=== PATIENT | female | born 1985 | race Caucasian/White ===

== ENCOUNTER → 2016-09-23 | Outpatient (CLI) | payer BC ==
[2016-09-23 11:27] LABS: Basophils % (A) 1 %; Eosinophils # (A) 0.1 k/uL (0-0.7); Eosinophils % (A) 2 %; HCT 41.4 % (34.0-46.0); HDW 2.26; HGB 13.3 gm/dL (11.4-16.0); Luc # (Auto) 0.09; Luc % (Auto) 2; Lymphocytes # (A) 1.5 k/uL (1.0-4.8); Lymphocytes % (A) 27 %; MCH 29.4 pg (25.0-35.0); MCHC 32.3 g/dL (31.0-37.0); MCV 91.2 fL (80.0-100.0); Mean Platelet Volume 6.8; Monocytes # (A) 0.3 k/uL (0-1.0); Monocytes % (A) 5 %; Neutrophils # (A) 3.7 k/uL (1.3-7.7); Neutrophils % (A) 65 %; RBC 4.53 m/uL (3.80-5.40); WBC 5.8 k/uL (3.8-10.6); WBC (Perox) 6.08
[2016-09-23 12:13] LABS: ALT 32 U/L (9-52); AST 20 U/L (14-36); Alkaline Phosphatase 99 U/L (38-126); Anion Gap 10 mmol/L; Blood Urea Nitrogen 14 mg/dL (7-17); Calcium 9.4 mg/dL (8.4-10.2); Carbon Dioxide 29 mmol/L (22-30); Chloride 101 mmol/L (98-107); Glucose 95 mg/dL (74-99); Non-African American GFR(MDRD) >60 (>60 ml/min/1.73 sqM); Potassium 4.6 mmol/L (3.5-5.1); Sodium 140 mmol/L (137-145); Total Bilirubin 0.7 mg/dL (0.2-1.3); Total Protein 7.6 g/dL (6.3-8.2)
== END | disposition home or self-care (01) ==
LOC: LABWHC1 10:42
PROVIDERS: ATTEND Nurse Practitioner Family
DX: R10.11 Right upper quadrant pain (principal); R63.5 Abnormal weight gain; R63.1 Polydipsia; R11.0 Nausea
CPT/HCPCS: 36415; 80053; 84443; 85025

== ENCOUNTER → 2016-09-29 | Outpatient (CLI) | payer BC ==
--- NOTE | 2016-09-29 13:53 | US ---
EXAMINATION TYPE: US abdomen limited DATE OF EXAM: 09/29/2016 11:10 AM COMPARISON: 02/03/2016 CLINICAL HISTORY: 31 year-old female nausea and weight gain. Patient only has right kidney. Known gal lstones; 3 weeks ago stated had severe RUQ pain radiating to back. TECHNIQUE: Multiple sonographic images of the right upper quadrant were obtained. FINDINGS: Liver Length: 12.7 cm Gallbladder Wall: 0.1 cm CBD: 0.3 cm Right Kidney: 11.7 x 5.4 x 5.8 cm Pancreas: Within normal limits. Liver: Limited views show no focal lesion. Gallbladder: Numerous small mobile calculi fill the gallbladder lumen. No abnormal gallbladder diste ntion, wall thickening, or pericholecystic fluid. Evidence for sonographic Grayson's sign: no CBD: Within normal limits. Right Kidney: no hydronephrosis. IMPRESSION: Cholelithiasis without evidence for acute cholecystitis or biliary ductal dilatation.
== END | disposition home or self-care (01) ==
LOC: RADUSWWP 10:37
PROVIDERS: ATTEND Family Medicine
DX: K80.20 Calculus of gallbladder without cholecystitis without obstruction (principal)
CPT/HCPCS: 76705; 81001; 81025

== ENCOUNTER → 2016-09-29 | Outpatient (CLI) | payer BC ==
[2016-09-29 11:56] LABS: Appearance,Urine Clear (Clear); Bacteria,Urine Rare /hpf; Bilirubin,Urine Negative (Negative); Glucose,Urine (UA) Negative (Negative); Ketones,Urine Negative (Negative); Leukocyte Esterase,Urine Moderate (Negative); Nitrite,Urine Negative (Negative); Particle Count 2748; Protein,Urine Negative (Negative); RBC,Urine 1 /hpf (0-5); Specific Gravity,Urine 1.013 (1.001-1.035); Squamous Epithelial Cell,Urine 7 /hpf (0-4); UA Billing (MACRO vs. MICRO) MICRO; Urobilinogen,Urine <2.0 mg/dL (<2.0); WBC,Urine 2 /hpf (0-5)
== END | disposition home or self-care (01) ==
LOC: LABWHC1 11:19
PROVIDERS: ATTEND Nurse Practitioner Family
DX: R11.0 Nausea (principal); R63.5 Abnormal weight gain
CPT/HCPCS: 81001; 81025

== ENCOUNTER 2016-10-07 15:22 | Emergency (ER) | payer BC ==
[2016-10-07] MEDS ORDERED: SODIUM CHLORIDE 0.9% 1,000 ML IV STA (15:39)
[2016-10-07] MEDS ORDERED: HYDROmorphone 1 MG/ML 1 ML SYRINGE IVP STA (15:57)
[2016-10-07] MEDS ORDERED: ONDANSETRON 4 MG/2 ML VIAL IVP STA (15:57)
[2016-10-07] MEDS ORDERED: ACETAMINOPHEN IV (For NPO) 1,000 MG in EMPTY BAG 1 BAG IVPB STA (16:23)
[2016-10-07 16:27] LABS: CH 30.2; CHCM 33.5; HCT 41.4 % (34.0-46.0); HDW 2.28; HGB 13.6 gm/dL (11.4-16.0); MCH 29.7 pg (25.0-35.0); MCHC 32.8 g/dL (31.0-37.0); MCV 90.5 fL (80.0-100.0); MPO Flag Slight; RBC 4.58 m/uL (3.80-5.40); RDW 12.8 % (11.5-15.5); WBC 7.8 k/uL (3.8-10.6); WBC (Perox) 44.28
--- NOTE | 2016-10-07 16:33 | ED ---
Abdominal Pain HPI - General Chief Complaint: Abdominal Pain Stated Complaint: Pain in Right Side Time Seen by Provider: 10/07/16 15:39 Source: patient, RN notes reviewed Mode of arrival: ambulatory Limitations: no limitations - History of Present Illness Initial Comments: 31-year-old female presents emergency department tingling right quadrant abdominal pain. Patient states that she saw Dr. Black for cholelithiasis. Patient states she originally was supposed to have surgery today though she moved it back. Patient states that she ate this morning around 1:30 she started having increasing pain. Patient's had some nausea. It denies any diarrhea, constipation. Denies fever, chills. - Related Data Home Medications Medication Instructions Recorded Confirmed Albuterol Inhaler [Ventolin Hfa 1 - 2 puff INHALATION RT-Q6H PRN 10/07/16 Inhaler] Montelukast Sodium [Singulair] 10 mg PO DAILY 10/07/16 10/07/16 Previous Rx's Medication Instructions Recorded Hydrocodone/Acetaminophen [[place] 1 tab PO Q6HR PRN #20 tab 10/07/16 5-325] Ondansetron Odt [Zofran Odt] 4 mg PO Q8HR PRN #10 tab 10/07/16 Allergies Allergy/AdvReac Type Severity Reaction Status Date / Time codeine Allergy Swelling Verified 10/07/16 15:49 Review of Systems ROS Statement: Those systems with pertinent positive or pertinent negative responses have been documented in the HPI. ROS Other: All systems not noted in ROS Statement are negative. Past Medical History Past Medical History: No Reported History Additional Past Medical History / Comment(s): PT STATES SHE HAS ONLY ONE KIDNEY , PT ALSO STATES SHE HAS A POLYP ON HER LEFT LUNG. History of Any Multi-Drug Resistant Organisms: None Reported Past Surgical History: No Surgical Hx Reported Additional Past Surgical History / Comment(s): 1 KIDNEY Past Anesthesia/Blood Transfusion Reactions: No Reported Reaction Past Psychological History: No Psychological Hx Reported Smoking Status: Never smoker Past Alcohol Use History: None Reported Past Drug Use History: None Reported - Past Family History Father Family Medical History: No Reported History General Exam Limitations: no limitations General appearance: alert, in no apparent distress Head exam: Present: atraumatic, normocephalic, normal inspection Respiratory exam: Present: normal lung sounds bilaterally. Absent: respiratory distress, wheezes, rales, rhonchi, stridor Cardiovascular Exam: Present: regular rate, normal rhythm, normal heart sounds. Absent: systolic murmur, diastolic murmur, rubs, gallop, clicks GI/Abdominal exam: Present: soft, tenderness (Mild right upper quadrant tenderness), normal bowel sounds. Absent: distended, guarding, rebound, rigid Back exam: Absent: CVA tenderness (R), CVA tenderness (L) Skin exam: Present: warm, dry, intact, normal color. Absent: rash Course Vital Signs 10/07/16 10/07/16 15:29 17:13 Temperature 98.2 F 97.7 F Pulse Rate 82 78 Respiratory 20 18 Rate Blood Pressure 132/80 118/82 O2 Sat by Pulse 98 100 Oximetry Medical Decision Making - Medical Decision Making 31-year-old female presented for right upper quadrant abdominal pain. Patient has known cholelithiasis. Dr. Black was emergency Department at the time of her arriving. She did state of lab work was within normal that the patient may be discharged. Patient is scheduled for for surgery. Return parameters were discussed. - Lab Data Result diagrams: 10/07/16 16:07 10/07/16 16:07 Lab Results 10/07/16 10/07/16 10/07/16 Range/Units 16:07 16:07 16:07 WBC 7.8 (3.8-10.6) k/uL RBC 4.58 (3.80-5.40) m/uL Hgb 13.6 (11.4-16.0) gm/dL Hct 41.4 (34.0-46.0) % MCV 90.5 (80.0-100.0) fL MCH 29.7 (25.0-35.0) pg MCHC 32.8 (31.0-37.0) g/dL RDW 12.8 (11.5-15.5) % Plt Count 254 (150-450) k/uL Neutrophils % (Manual) 69.0 % Lymphocytes % (Manual) 22.0 % Monocytes % (Manual) 5.0 % Eosinophils % (Manual) 4.0 % Neutrophils # (Manual) 5.4 (1.3-7.7) k/uL Lymphocytes # (Manual) 1.7 (1.0-4.8) k/uL Monocytes # (Manual) 0.4 (0-1.0) k/uL Eosinophils # (Manual) 0.3 (0-0.7) k/uL Nucleated RBCs 0 (0-0) /100 WBC Polychromasia Present Sodium 143 (137-145) mmol/L Potassium 4.3 (3.5-5.1) mmol/L Chloride 103 (98-107) mmol/L Carbon Dioxide 28 (22-30) mmol/L Anion Gap 12 mmol/L BUN 11 (7-17) mg/dL Creatinine 0.75 (0.52-1.04) mg/dL Est GFR (MDRD) Af Amer >60 (>60 ml/min/1.73 sqM) Est GFR (MDRD) Non-Af >60 (>60 ml/min/1.73 sqM) Glucose 91 (74-99) mg/dL Calcium 9.9 (8.4-10.2) mg/dL Total Bilirubin 0.5 (0.2-1.3) mg/dL AST 25 (14-36) U/L ALT 42 (9-52) U/L Alkaline Phosphatase 98 (38-126) U/L Total Protein 8.0 (6.3-8.2) g/dL Albumin 4.5 (3.5-5.0) g/dL Amylase 56 (30-110) U/L Lipase 78 (23-300) U/L Urine Color Urine Appearance (Clear) Urine pH (5.0-8.0) Ur Specific [place] (1.001-1.035) Urine Protein (Negative) Urine Glucose (UA) (Negative) Urine Ketones (Negative) Urine Blood (Negative) Urine Nitrate (Negative) Urine Bilirubin (Negative) Urine Urobilinogen (<2.0) mg/dL Ur Leukocyte Esterase (Negative) Urine RBC (0-5) /hpf Urine WBC (0-5) /hpf Ur Squamous Epith Cells (0-4) /hpf Amorphous Sediment (None) /hpf Urine Bacteria (None) /hpf Urine Mucus (None) /hpf Urine HCG, Qual Not Detected (Not Detectd) 10/07/16 Range/Units 16:07 WBC (3.8-10.6) k/uL RBC (3.80-5.40) m/uL Hgb (11.4-16.0) gm/dL Hct (34.0-46.0) % MCV (80.0-100.0) fL MCH (25.0-35.0) pg MCHC (31.0-37.0) g/dL RDW (11.5-15.5) % Plt Count (150-450) k/uL Neutrophils % (Manual) % Lymphocytes % (Manual) % Monocytes % (Manual) % Eosinophils % (Manual) % Neutrophils # (Manual) (1.3-7.7) k/uL Lymphocytes # (Manual) (1.0-4.8) k/uL Monocytes # (Manual) (0-1.0) k/uL Eosinophils # (Manual) (0-0.7) k/uL Nucleated RBCs (0-0) /100 WBC Polychromasia Sodium (137-145) mmol/L Potassium (3.5-5.1) mmol/L Chloride (98-107) mmol/L Carbon Dioxide (22-30) mmol/L Anion Gap mmol/L BUN (7-17) mg/dL Creatinine (0.52-1.04) mg/dL Est GFR (MDRD) Af Amer (>60 ml/min/1.73 sqM) Est GFR (MDRD) Non-Af (>60 ml/min/1.73 sqM) Glucose (74-99) mg/dL Calcium (8.4-10.2) mg/dL Total Bilirubin (0.2-1.3) mg/dL AST (14-36) U/L ALT (9-52) U/L Alkaline Phosphatase (38-126) U/L Total Protein (6.3-8.2) g/dL Albumin (3.5-5.0) g/dL Amylase (30-110) U/L Lipase (23-300) U/L Urine Color Light Yellow Urine Appearance Cloudy H (Clear) Urine pH 5.5 (5.0-8.0) Ur Specific [place] 1.009 (1.001-1.035) Urine Protein Negative (Negative) Urine Glucose (UA) Negative (Negative) Urine Ketones Negative (Negative) Urine Blood Negative (Negative) Urine Nitrate Negative (Negative) Urine Bilirubin Negative (Negative) Urine Urobilinogen <2.0 (<2.0) mg/dL Ur Leukocyte Esterase Large H (Negative) Urine RBC 4 (0-5) /hpf Urine WBC 11 H (0-5) /hpf Ur Squamous Epith Cells 10 H (0-4) /hpf Amorphous Sediment Rare H (None) /hpf Urine Bacteria Rare H (None) /hpf Urine Mucus Rare H (None) /hpf Urine HCG, Qual (Not Detectd) Disposition Clinical Impression: Cholelithiasis, Biliary colic Disposition: HOME SELF-CARE Condition: Stable Instructions: Abdominal Pain (ED) Additional Instructions: Please return to the Emergency Department if symptoms worsen or any other concerns. Prescriptions: Hydrocodone/Acetaminophen [[place] 5-325] 1 tab PO Q6HR PRN #20 tab PRN Reason: Pain Ondansetron Odt [Zofran Odt] 4 mg PO Q8HR PRN #10 tab PRN Reason: Nausea Referrals: Armond Martinez MD [Primary Care Provider] - 1-2 days Eula Black MD [STAFF PHYSICIAN] - 1-2 days Time of Disposition: 17:33
[2016-10-07 16:39] LABS: Add Differential Manual Differential
[2016-10-07 16:40] LABS: ALT 42 U/L (9-52); AST 25 U/L (14-36); Alkaline Phosphatase 98 U/L (38-126); Amylase 56 U/L (30-110); Anion Gap 12 mmol/L; Blood Urea Nitrogen 11 mg/dL (7-17); Calcium 9.9 mg/dL (8.4-10.2); Carbon Dioxide 28 mmol/L (22-30); Chloride 103 mmol/L (98-107); Glucose 91 mg/dL (74-99); Non-African American GFR(MDRD) >60 (>60 ml/min/1.73 sqM); Nucleated Red Blood Cells 0 /100 WBC (0-0); Polychromasia Present; Potassium 4.3 mmol/L (3.5-5.1); Sodium 143 mmol/L (137-145); Total Bilirubin 0.5 mg/dL (0.2-1.3); Total Cells Counted 100
[2016-10-07 16:52] LABS: Amorphous Sediment,Urine Rare /hpf; Appearance,Urine Cloudy (Clear); Bacteria,Urine Rare /hpf; Bilirubin,Urine Negative (Negative); Glucose,Urine (UA) Negative (Negative); Ketones,Urine Negative (Negative); Leukocyte Esterase,Urine Large (Negative); Mucus,Urine Rare /hpf; Nitrite,Urine Negative (Negative); PH, Urine 5.5 (5.0-8.0); Particle Count 8491; Protein,Urine Negative (Negative); RBC,Urine 4 /hpf (0-5); Specific Gravity,Urine 1.009 (1.001-1.035); Squamous Epithelial Cell,Urine 10 /hpf (0-4); UA Billing (MACRO vs. MICRO) MICRO; Urobilinogen,Urine <2.0 mg/dL (<2.0); WBC,Urine 11 /hpf (0-5)
[2016-10-07 17:14] VITALS: BP 118/82; PULSE 78; RESP 18; TEMP 97.7
== END 2016-10-07 17:47 | disposition home or self-care (01) ==
LOC: EC 15:22
DX: K80.70 Calculus of gallbladder and bile duct without cholecystitis without obstruction (principal); Z79.899 Other long term (current) drug therapy; Z88.5 Allergy status to narcotic agent
CPT/HCPCS: 36415; 80053; 82150; 83690; 85025; 81001; 81025; 96365; 96375; 96361; 99284; J2405; J0131

== ENCOUNTER → 2017-07-03 | Outpatient (CLI) | payer BC ==
--- NOTE | 2017-07-03 15:40 | XR ---
EXAMINATION TYPE: XR chest 2V DATE OF EXAM: 07/03/2017 COMPARISON: NONE HISTORY: Chest pain TECHNIQUE: Frontal and lateral views of the chest are obtained. FINDINGS: There is no focal air space opacity. No evidence for pneumothorax. No pleural effusion. The cardiac silhouette size is within normal limits. The osseous structures are grossly intact. IMPRESSION: 1. No acute cardiopulmonary process.
== END ==
LOC: RADXRMAIN 15:21
PROVIDERS: ATTEND Family Medicine
DX: R06.02 Shortness of breath (principal); R05 Cough
CPT/HCPCS: 71020

== ENCOUNTER 2017-07-06 12:53 | Emergency (ER) | payer BC ==
--- NOTE | 2017-07-06 13:33 | ED ---
General Adult HPI - General Chief complaint: Shortness of Breath Stated complaint: Asthma/Breathing Problems Time Seen by Provider: 07/06/17 13:00 Source: patient, RN notes reviewed Mode of arrival: ambulatory Limitations: no limitations - History of Present Illness Initial comments: This is a 31-year-old female presents emergency Department complaining that she has having an asthma attack. Patient states she started Dr. on Monday and was given steroids and continued to breathing treatments. Patient states she has had no fever or chills per patient denies any chest pain or palpitations. Patient states breathing treatments don't seem to make it any better or worse. Patient denies any calf pain or leg swelling. She denies any abdominal pain. Patient does state there is a little posterior thorax pain on the right. She states is worse with deep breathing. - Related Data Home Medications Medication Instructions Recorded Confirmed Albuterol Inhaler [Ventolin Hfa 1 - 2 puff INHALATION RT-Q6H PRN 10/07/16 Inhaler] Albuterol Nebulized [Ventolin 2.5 mg INHALATION RT-Q6H PRN 07/06/17 07/06/17 Nebulized] Fexofenadine HCl [Noreen Allergy] 180 mg PO DAILY 07/06/17 07/06/17 Norgestimate-Ethinyl Estradiol 1 tab PO DAILY 07/06/17 07/06/17 [Ortho Tri-Cyclen 28 Tablet] predniSONE See Taper PO DAILY 07/06/17 07/06/17 Allergies Allergy/AdvReac Type Severity Reaction Status Date / Time codeine Allergy Swelling Verified 07/06/17 13:47 Review of Systems ROS Statement: Those systems with pertinent positive or pertinent negative responses have been documented in the HPI. ROS Other: All systems not noted in ROS Statement are negative. Past Medical History Past Medical History: Asthma Additional Past Medical History / Comment(s): PT STATES SHE HAS ONLY ONE KIDNEY , PT ALSO STATES SHE HAS A POLYP ON HER LEFT LUNG. History of Any Multi-Drug Resistant Organisms: None Reported Past Surgical History: No Surgical Hx Reported Additional Past Surgical History / Comment(s): 1 KIDNEY Past Anesthesia/Blood Transfusion Reactions: No Reported Reaction Past Psychological History: No Psychological Hx Reported Smoking Status: Never smoker Past Alcohol Use History: None Reported Past Drug Use History: None Reported - Past Family History Father Family Medical History: No Reported History General Exam - General Exam Comments Initial Comments: GENERAL: Patient is well-developed and well-nourished. Patient is nontoxic and well- hydrated and is in no acute distress. ENT: Neck is soft and supple. No significant lymphadenopathy is noted. Oropharynx is clear. Moist mucous membranes. Neck has full range of motion without eliciting any pain. EYES: The sclera were anicteric and conjunctiva were pink and moist. Extraocular movements were intact and pupils were equal round and reactive to light. Eyelids were unremarkable. PULMONARY: Unlabored respirations. Good breath sounds bilaterally. No audible rales rhonchi or wheezing was noted. Patient makes almost no effort to take a deep breath. CARDIOVASCULAR: There is a regular rate and rhythm without any murmurs gallops or rubs. ABDOMEN: Soft and nontender with normal bowel sounds. No palpable organomegaly was noted. There is no palpable pulsatile mass. SKIN: Skin is clear with no lesions or rashes and otherwise unremarkable. NEUROLOGIC: Patient is alert and oriented x3. Cranial nerves II through XII are grossly intact. Motor and sensory are also intact. Normal speech, volume and content. Symmetrical smile. MUSCULOSKELETAL: Normal extremities with adequate strength and full range of motion. No lower extremity swelling or edema. No calf tenderness. LYMPHATICS: No significant lymphadenopathy is noted PSYCHIATRIC: Normal psychiatric evaluation. Normal interpersonal interactions appears functionally intact in deals appropriately with others. No signs of depression. No signs of anxiety. Limitations: no limitations Course Vital Signs 07/06/17 07/06/17 07/06/17 13:00 14:00 14:40 Temperature 99.0 F 98.2 F Pulse Rate 98 98 87 Respiratory 20 20 16 Rate Blood Pressure 131/87 129/83 136/83 O2 Sat by Pulse 100 98 99 Oximetry Medical Decision Making - Medical Decision Making Chest x-ray shows no acute abnormality. Patient was never wheezing and never in any respiratory distress whatsoever. Patient states she was on her period. - Lab Data Lab Results 07/06/17 Range/Units 13:50 Urine Color Yellow Urine Appearance Clear (Clear) Urine pH 5.0 (5.0-8.0) Ur Specific [place] 1.011 (1.001-1.035) Urine Protein Negative (Negative) Urine Glucose (UA) Negative (Negative) Urine Ketones Negative (Negative) Urine Blood Moderate H (Negative) Urine Nitrite Negative (Negative) Urine Bilirubin Negative (Negative) Urine Urobilinogen <2.0 (<2.0) mg/dL Ur Leukocyte Esterase Large H (Negative) Urine RBC 4 (0-5) /hpf Urine WBC 5 (0-5) /hpf Ur Squamous Epith Cells 3 (0-4) /hpf Urine Bacteria Occasional H (None) /hpf Urine Mucus Rare H (None) /hpf Disposition Clinical Impression: History of asthma Disposition: HOME SELF-CARE Condition: Good Instructions: Asthma (ED) Referrals: Armond Martinez MD [Primary Care Provider] - 1-2 days Time of Disposition: 14:58
--- NOTE | 2017-07-06 13:51 | XR ---
EXAMINATION TYPE: XR chest 2V DATE OF EXAM: 07/06/2017 COMPARISON: Chest x-ray from 3 days ago HISTORY: History of asthma with dyspnea for 4 days. TECHNIQUE: Frontal and lateral views of the chest are obtained. FINDINGS: There is no focal air space opacity, pleural effusion, or pneumothorax seen. The cardiac silhouette size is within normal limits. The osseous structures are intact. Cholecystectomy clips a re redemonstrated. IMPRESSION: No acute pulmonary process. No significant change from prior.
[2017-07-06 14:02] VITALS: TEMP 98.2
[2017-07-06 14:19] LABS: Appearance,Urine Clear (Clear); Bacteria,Urine Occasional /hpf; Bilirubin,Urine Negative (Negative); Glucose,Urine (UA) Negative (Negative); Ketones,Urine Negative (Negative); Leukocyte Esterase,Urine Large (Negative); Mucus,Urine Rare /hpf; Nitrite,Urine Negative (Negative); Particle Count 4625; Protein,Urine Negative (Negative); RBC,Urine 4 /hpf (0-5); Specific Gravity,Urine 1.011 (1.001-1.035); Squamous Epithelial Cell,Urine 3 /hpf (0-4); UA Billing (MACRO vs. MICRO) MICRO; Urobilinogen,Urine <2.0 mg/dL (<2.0); WBC,Urine 5 /hpf (0-5)
[2017-07-06 14:40] VITALS: BP 136/83; PULSE 87; RESP 16
== END 2017-07-06 15:10 | disposition home or self-care (01) ==
LOC: EC 12:53
DX: J45.909 Unspecified asthma, uncomplicated (principal); Z79.3 Long term (current) use of hormonal contraceptives; Z79.51 Long term (current) use of inhaled steroids; Z79.899 Other long term (current) drug therapy; Z88.5 Allergy status to narcotic agent
CPT/HCPCS: 71020; 81001; 87086; 99285

== ENCOUNTER → 2017-07-13 | Outpatient (CLI) | payer BC | END | disposition home or self-care (01) | LOC: LABWHC1 12:45 | PROVIDERS: ATTEND Nurse Practitioner Family | DX: R06.02 Shortness of breath (principal); R07.9 Chest pain, unspecified; Z30.41 Encounter for surveillance of contraceptive pills | CPT/HCPCS: 36415; 85379 ==

== ENCOUNTER 2017-07-14 18:14 | Emergency (ER) | payer BC ==
[2017-07-14 18:21] VITALS: RESP 18
[2017-07-14] MEDS ORDERED: methylPREDNISolone SOD SUCCI 125 MG/2 ML VIAL IV STA (18:31)
[2017-07-14] MEDS ORDERED: diphenhydrAMINE 50 MG/ML 1 ML VIAL IVP STA (18:31)
[2017-07-14] MEDS ORDERED: FAMOTIDINE 20 MG/2 ML VIAL IV STA (18:31)
--- NOTE | 2017-07-14 18:36 | ED ---
General Adult HPI - General Chief complaint: Allergic Reaction Stated complaint: Diff Breathing Time Seen by Provider: 07/14/17 18:24 Source: patient, RN notes reviewed Mode of arrival: ambulatory Limitations: no limitations - History of Present Illness Initial comments: 31 yo female presents to the ER with cc of ALLERGIC reaction. Patient had a CT with contrast earlier today. She started to notice a rash and hives and some difficulty breathing she took Benadryl which did help but she still is not feeling 100% better she thought that she should be evaluated. Patient states that she had this time has had improvement to her shortness of breath but she still has the hives mostly to the chest and face. She states that she has never had a reaction to contrast before she denies any known ALLERGY to shellfish but states that she doesn't eat them either. She was concerned due to the rash and the difficulty breathing so she thought that she should be seen. Patient denies any recent fever, chills, chest pain, back pain, abdominal pain, nausea vomiting, numbness or tingling, dysuria or hematuria, constipation or diarrhea, headaches or visual changes, or any other current symptoms. - Related Data Home Medications Medication Instructions Recorded Confirmed Albuterol Inhaler [Ventolin Hfa 1 - 2 puff INHALATION RT-Q6H PRN 10/07/16 Inhaler] Fexofenadine HCl [Noreen Allergy] 180 mg PO DAILY 07/06/17 07/14/17 Norgestimate-Ethinyl Estradiol 1 tab PO DAILY 07/06/17 07/14/17 [Ortho Tri-Cyclen 28 Tablet] L.acidoph,Paracasei, B.lactis 1 cap PO DAILY 07/14/17 07/14/17 [Probiotic] Previous Rx's Medication Instructions Recorded Famotidine [Pepcid] 20 mg PO BID #10 tablet 07/14/17 diphenhydrAMINE [Benadryl] 50 mg PO HS PRN #5 capsule 07/14/17 predniSONE 50 mg PO DAILY #5 tab 07/14/17 Allergies Allergy/AdvReac Type Severity Reaction Status Date / Time codeine Allergy Swelling Verified 07/14/17 18:57 Review of Systems ROS Statement: Those systems with pertinent positive or pertinent negative responses have been documented in the HPI. ROS Other: All systems not noted in ROS Statement are negative. Past Medical History Past Medical History: Asthma Additional Past Medical History / Comment(s): PT STATES SHE HAS ONLY ONE KIDNEY , PT ALSO STATES SHE HAS A POLYP ON HER LEFT LUNG. History of Any Multi-Drug Resistant Organisms: None Reported Past Surgical History: Cholecystectomy Additional Past Surgical History / Comment(s): 1 KIDNEY Past Anesthesia/Blood Transfusion Reactions: No Reported Reaction Past Psychological History: No Psychological Hx Reported Smoking Status: Never smoker Past Alcohol Use History: None Reported, Rare Past Drug Use History: None Reported - Past Family History Father Family Medical History: No Reported History General Exam Limitations: no limitations General appearance: alert, in no apparent distress Eye exam: Present: normal appearance, PERRL, EOMI. Absent: scleral icterus, conjunctival injection, periorbital swelling ENT exam: Present: normal exam, mucous membranes moist Neck exam: Present: normal inspection. Absent: tenderness, meningismus, lymphadenopathy Respiratory exam: Present: normal lung sounds bilaterally. Absent: respiratory distress, wheezes, rales, rhonchi, stridor Cardiovascular Exam: Present: regular rate, normal rhythm, normal heart sounds. Absent: systolic murmur, diastolic murmur, rubs, gallop, clicks Extremities exam: Present: normal inspection, full ROM, normal capillary refill. Absent: tenderness, pedal edema, joint swelling, calf tenderness Neurological exam: Present: alert, oriented X3, CN II-XII intact Skin exam: Present: warm, dry, intact, rash (Urticaria) Course Vital Signs 07/14/17 18:17 Temperature 98.8 F Pulse Rate 94 Respiratory 18 Rate Blood Pressure 156/85 O2 Sat by Pulse 100 Oximetry Medical Decision Making - Medical Decision Making 31-year-old female presents to the emergency chief complaint of urticarial type rash after receiving contrast for the CT. patient has received prednisone Benadryl and Pepcid. Patient's imaging has improved and she has had no difficulty in breathing. At this time we will start patient on medications for home. We did discuss precautions with any further CT scans. We did discuss return parameters and follow-up. Patient stated he understood all questions were answered. He'll be discharged. Disposition Clinical Impression: Allergic reaction, Urticaria Disposition: HOME SELF-CARE Condition: Stable Instructions: Anaphylaxis (ED), Urticaria (ED) Additional Instructions: Please use medication as discussed. Please follow up with family doctor if symptoms have not improved over the next two days. Please return to the emergency room if your symptoms increase or worsen or for any other concerns. Prescriptions: diphenhydrAMINE [Benadryl] 50 mg PO HS PRN #5 capsule PRN Reason: Itching Famotidine [Pepcid] 20 mg PO BID #10 tablet predniSONE 50 mg PO DAILY #5 tab Referrals: Armond Martinez MD [Primary Care Provider] - 1-2 days Time of Disposition: 19:45
[2017-07-14 20:01] VITALS: BP 141/92; PULSE 90; TEMP 98
== END 2017-07-14 19:59 | disposition home or self-care (01) ==
LOC: EC 18:14
DX: L50.0 Allergic urticaria (principal); T50.8X5A Adverse effect of diagnostic agents, initial encounter; Z79.3 Long term (current) use of hormonal contraceptives; Z79.899 Other long term (current) drug therapy; Z88.5 Allergy status to narcotic agent
CPT/HCPCS: 99284; 96374; 96375 ×2; J1200; J2930; 36415; 71275; 82565; 84520

== ENCOUNTER → 2017-07-14 | Outpatient (CLI) | payer BC ==
[2017-07-14 10:22] LABS: Blood Urea Nitrogen 16 mg/dL (7-17); Non-African American GFR(MDRD) >60 (>60 ml/min/1.73 sqM)
--- NOTE | 2017-07-14 11:11 | CT ---
EXAMINATION TYPE: CT angio chest DATE OF EXAM: 07/14/2017 COMPARISON: NONE HISTORY: Elevated d-dimer CT DLP: 167.60 mGycm. Automated Exposure Control for Dose Reduction was Utilized. CONTRAST: CTA scan of the thorax is performed with IV Contrast, patient injected with 100 ml mL of Omnipaque 35 0, pulmonary embolism protocol. MIP Images are created on CT scanner and reviewed. FINDINGS: LUNGS: The lungs are grossly clear, there is no concerning parenchymal mass or nodule identified. 3. 5 x 3.6 cm right middle lobe bulla is present. Minimal subsegmental dependent bibasilar atelectasis. There is no pleural effusion or pneumothorax seen. The tracheobronchial tree is patent. MEDIASTINUM: There is satisfactory enhancement of the pulmonary artery and its branches, there is no CT evidence for pulmonary embolism. Ascending thoracic aorta is within normal limits of There are no greater than 1 cm hilar or mediastinal lymph nodes. No cardiomegaly or pericardial effusion is see n. OTHER: No additional significant abnormality is seen. IMPRESSION: 1. No evidence of acute pulmonary embolus. Finding was communicated to Arabella at the ordering physician 's office on 07/14/2017 at 11:08 AM. 2. Right middle lobe pulmonary blebs, incidentally noted.
== END | disposition home or self-care (01) ==
LOC: RADCTMAIN 09:43
PROVIDERS: ATTEND Nurse Practitioner Family
DX: J43.9 Emphysema, unspecified (principal); R79.89 Other specified abnormal findings of blood chemistry; Z30.41 Encounter for surveillance of contraceptive pills
CPT/HCPCS: 82565; 84520; 71275; 36415; Q9967

== ENCOUNTER → 2017-07-25 | Outpatient (CLI) | payer BC ==
--- NOTE | 2017-07-25 10:42 | XR ---
EXAMINATION TYPE: XR abdomen 1V DATE OF EXAM: 07/25/2017 COMPARISON: 12/20/2014 HISTORY: Pain TECHNIQUE: Single supine KUB image of the abdomen is obtained FINDINGS: Small bowel demonstrates no evidence for dilatation or air fluid levels. Gas and fecal material is seen in non-distended colon. No convincing evidence for pneumoperitoneum. No unusual calcifications. The lung bases are clear. The osseous structures are intact. IMPRESSION: 1. Overall nonobstructive bowel gas pattern.
== END | disposition home or self-care (01) ==
LOC: RADXRMAIN 09:38
PROVIDERS: ATTEND Family Medicine
DX: K59.00 Constipation, unspecified (principal)
CPT/HCPCS: 74000

== ENCOUNTER 2017-09-15 07:13 | Day surgery (SDC) | payer BC ==
[2017-09-13 11:03] VITALS: BMI 27.3
[~2017-09-15 07:13] MED LIST: LACTATED RINGERS 1,000 ML IV SCH; ONDANSETRON 4 MG/2 ML VIAL IVP PRN
[2017-09-15 07:44] VITALS: RESP 16; TEMP 97.9
[2017-09-15] MEDS ORDERED: LIDOCAINE 1% 20 ML VIAL (10MG/ML) FOR IV START INTRADERMA ONE (07:47)
[2017-09-15] MEDS ORDERED: NA PHOS,M-B/NA PHOS,DI-BA 133 ML ENEMA RECTAL ONE ×2 (07:58→08:19)
[2017-09-15] MEDS ORDERED: PROPOFOL 10 MG/ML 20 ML VIAL IV ONE (08:47)
--- NOTE | 2017-09-15 09:10 | P.PCN ---
Date of Procedure: 09/15/17 Procedure(s) Performed: Brief history: Patient is a pleasant 32-year-old white female,scheduled for an elective upper endoscopy as well as colonoscopy as a part of evaluation of abdominal pain, abdominal bloating and alternating diarrhea and constipation of several years duration. Symptoms lately have been progressively getting worse. Procedure performed: Esophagogastroduodenoscopy with biopsy Colonoscopy with biopsy Preoperative diagnosis: abdominal pain, abdominal bloating and alternating diarrhea and constipation of several years duration Anesthesia: MAC Procedure: After informed consent was obtained from the patient was brought into the endoscopy unit and IV sedation was administered by anesthesia under continuous monitoring. Initially upper endoscopy was done. The Olympus GF 160 video endoscope was inserted inserted into the mouth and esophagus intubated without any difficulty and was gradually advanced into the stomach and duodenum and carefully examined. The bulb and second part of the duodenum appeared normal. biopsies were done from the duodenum to rule out celiac disease.The scope was then withdrawn into the stomach adequately insufflated with air and upon careful examination the antrum had mild gastritis and biopsies were done from this area. The body, cardia and fundus appeared normal. The scope was then withdrawn into the esophagus. small sliding Hiatal hernia noted. The GE junction was located at 38 cm to the incisors. It appeared regular with no erythema erosions or ulcerations. Rest of the esophagus appeared normal. Patient tolerated the procedure well. At this time the patient continued to remain sedation. Initial digital rectal examination was normal. Olympus CF 160 video colonoscope was then inserted into the rectum and gradually advanced to the cecum without any difficulty. Careful examination was performed as the scope was gradually being withdrawn. terminal ileum was intubated and 20 cm visualized and appeared normal.The prep was excellent. The cecum, ascending colon, transverse colon, descending colon, sigmoid colon and rectum appeared normal. random biopsies were done from ascending and ascending colon to rule out microscopic/collagenous colitis. Retroflexion was performed in the rectum and no lesions were noted. Patient tolerated the procedure well. Impression: 1. Upper endoscopy revealed mild antral gastritis and a small hiatal hernia. 2. Colonoscopy revealed scattered sigmoid diverticulosis but no evidence of colitis or colorectal neoplasia Recommendations: Findings of this examination were discussed with the patient as well as her family. She was advised to follow with the biopsy results. she will be seen in office in 2 weeks.
[2017-09-15 09:34] VITALS: BP 109/76; PULSE 77
== END 2017-09-15 10:00 | disposition home or self-care (01) ==
LOC: ORWHC2ENDO 07:13
PROVIDERS: ATTEND Internal Medicine Gastroenterology
DX: K29.60 Other gastritis without bleeding (principal); K44.9 Diaphragmatic hernia without obstruction or gangrene; K57.30 Diverticulosis of large intestine without perforation or abscess without bleeding; J45.909 Unspecified asthma, uncomplicated; K21.9 Gastro-esophageal reflux disease without esophagitis; Z79.3 Long term (current) use of hormonal contraceptives; Z79.899 Other long term (current) drug therapy; Z88.5 Allergy status to narcotic agent; Z91.041 Radiographic dye allergy status
CPT/HCPCS: 88305; 88342; 45380; 43239; J2704